=== PATIENT | male | born 1965 | race Caucasian/White ===

== ENCOUNTER 2023-10-19 06:24 | Day surgery (SDC) | payer OTHER, SELFPAY ==
[2023-10-19] VITALS (8 sets, daily range): BP systolic 73–118; BP diastolic 48–87; PULSE 55–72; RESP 16; TEMP 36.2–36.4; O2SAT 91–100; BMI 27.8
[2023-10-19 06:57] LABS: Hematocrit 44.7 % (40-54); Hemoglobin 14.8 g/dL (13.0-16.5); Mean Corp Hgb Conc 33.1 g/dL (32-36); Mean Corpuscular Hgb 30.6 pg (27.0-32.0); Mean Corpuscular Volume 92.4 fL (80-94); Mean Platelet Vol. 9.8 fl (6.2-12.0); Platelet Count 204 K/mm3 (150-450); RBC Distribution Width CV 13.4 % (11.6-14.6); RBC Distribution Width SD 46.2 fl (35.1-43.9); Red Blood Count 4.84 M/mm3 (4.6-6.2); White Blood Count 6.8 K/mm3 (4.4-11.0)
[2023-10-19] MEDS: Lactated Ringers 1,000 ML 15 ML IV (07:05)
[2023-10-19] MEDS: Cefazolin 2 GM in 0.9% Normal Saline (100mL Bag) 100 ML IV (08:23)
[2023-10-19] MEDS: Epinephrine (1 mg/ml) 1 MG/ML VIAL (08:52)
--- NOTE | 2023-10-19 13:37 | PCM.OPRPT ---
Report of Operation Date of Procedure: 10/19/23 Description of Surgical Findings:: Preoperative diagnosis: 1. Right shoulder rotator cuff tear 2. Right shoulder subacromial impingement syndrome 3. Right shoulder biceps tendinosis 4. Right shoulder acromioclavicular joint osteoarthritis Postoperative diagnosis: 1. Right shoulder rotator cuff tear 2. Right shoulder subacromial impingement syndrome 3. Right shoulder long head biceps tendon rupture 4. Right shoulder acromioclavicular joint osteoarthritis Procedure 1. Right shoulder arthroscopic rotator cuff repair 2. Right shoulder arthroscopic subacromial decompression 3. Right shoulder arthroscopic distal clavicle excision 4. Right shoulder arthroscopic debridement of labrum, biceps labral junction, capsular tissue Surgeon: Teto Aparicio DO Combat Control Manager: Mary Ellen Simmons PA-C Anesthesia: General LMA with interscalene block Him Assistant: Jesse Guerra CRNA Estimated blood loss: 5 cc IV fluids: Per anesthesia record Urine output: None recorded Packing/drains: None Implants: Arthrex fiber tack RC x 3, Arthrex 4.75 mm bio composite swivel lock anchor x 3 Preoperative indications: This is an active 58 year-old male seen in the outpatient setting with acute onset right shoulder pain. He had profound weakness in his supraspinatus. MRI demonstrated a full-thickness retracted tear of the supraspinatus and infraspinatus. I recommend surgical intervention in the form of right shoulder arthroscopic rotator cuff repair, subacromial decompression. Patient also had evidence of a chronic SLAP tear and biceps tenodesis was recommended, as well as AC joint arthritis and distal clavicle excision was recommended as well. Informed consent was obtained in the outpatient setting. Risks, benefits, terms the procedure reviewed with the patient at length and he agreed to proceed. Risk included but were not limited to bleeding, infection, loss of life or limb, need for additional surgery, persistent pain, nonhealing tendon or wounds, stiffness, neurovascular injury, DVT or PE. Patient expressed understanding of these risks and wished to proceed with surgery. Description of procedure: Patient was identified in preoperative holding area by name, medical record number, and date of . The operative extremity was marked. All questions were answered to the patient's satisfaction. An interscalene block was administered by anesthesia prior to the procedure. Patient was then brought to the operative suite at time of his procedure. He was positioned supine a sterile operating table. General anesthesia was induced and LMA was placed. Patient was then placed in lateral decubitus position with the right side up. A beanbag was used to hold the patient in the lateral decubitus position. An axillary roll was placed. Pillows were placed beneath and between his legs to free any bony prominences. We prepped and draped the right upper extremity in normal, sterile orthopedic fashion. The operative extremity was placed in traction utilizing arthroscopic bedroom with 15 pounds of tension applied to the operative extremity throughout the arthroscopic portion of the case. We performed a timeout with all parties in attendance in agreement with the side, site, and operation be performed. No concerns were voiced and we elected to proceed with surgery. 2 g Ancef was administered IV prior to incision by anesthesia staff. I first established a standard posterior portal 2 fingerbreadths inferior medial to the posterior lateral border of the scapular spine. Blunt tipped trocar and arthroscopic cannula was introduced into the glenohumeral joint. Joint was inflated with normal saline with epinephrine. Arthroscope was then introduced. Diagnostic arthroscopy was commenced. Full-thickness tearing was noted of the supra and infraspinatus. Anterior interval portal was then established. The biceps tendon was not visualized and appeared to be ruptured. Tendon stump was debrided at the superior labrum. Degenerative labral fraying was debrided at the superior portion of the labrum. Glenohumeral cartilage was pristine. The subscapularis was unremarkable. I debrided the articular side of the rotator cuff with the arthroscopic shaver. I then turned my attention to the subacromial space. Arthroscopic instruments were removed. I reentered the shoulder in the subacromial space with blunt tipped trocar. Standard lateral portal was established with an 11 blade scalpel. Passport was placed for suture management during rotator cuff repair. I then skeletonized the undersurface of the acromion. A prominent downsloping spur from the anterior lateral surface of the acromion was identified. Acromioplasty was performed with the arthroscopic bur removing the spur. I then exposed the supraspinatus footprint with the cautery device. The footprint was lightly decorticated with a bur. Bursal side of the tendon tissue was debrided with a radial resector. I then proceeded with double row fixation. Via percutaneous portal, 3 fiber tack RC anchors were placed for medial row. Sutures were retrieved out the anterior portal. I then sequentially passed each limb of suture from the anchors. A total of 6 suture strands were placed through the supraspinatus tendon tissue near the musculotendinous junction. A single limb of each suture was then retrieved at the lateral portal and passed through the eyelet of a swivel lock anchor, 2 to lock anchors were utilized for a lateral row. Lateral row sales and marketing agent holes were established with the vendor supplied punch. I then completed our lateral row with fixation with tensioning of the sutures and placed in the swivel lock anchor with excellent cortical purchase. Excellent compression and reapproximation of the supraspinatus to his [place] footprint was achieved. Remaining infraspinatus tendon tear was fixed to bone with an inverted mattress #2 FiberWire suture through a swivel lock anchor in standard fashion with excellent reapproximation of tissue to bone. I then turned my attention to the AC joint. The joint capsule was opened along the inferior and anterior aspects. Distal clavicle excision was then performed with the arthroscopic bur removing approximately 8 mm distal clavicle in standard fashion. The superior and posterior portions of the joint capsule were left intact. I then thoroughly lavaged the subacromial space. Arthroscopic instruments were removed. Portal sites were closed in standard fashion with a [id number] 3-0 nylon suture. Given the remote biceps tendon rupture, elected to not perform a biceps tenodesis. Bulky sterile compression dressing was applied. Patient was placed in UltraSling. He tolerated the procedure well without apparent complication. He was safely awoken the operative suite and extubated. He was transferred to his gurney and subsequently to PACU in stable condition. Need for skilled [employer] assistant manager: Mary Ellen Simmons PA-C was critical to the outcome of the case. During the course of the procedure the physician [employer] assistant manager played a vital role. Her intimate knowledge of my steps in the procedure aided in safe and expedient completion of the procedure. The PA played a vital role in positioning particularly in obtaining the appropriate positioning. The PA was also vital in the retraction of soft tissues during the exposure and protecting vital structures. The PA was also vital and obtaining tendon reduction and assisting with hardware placement. She also played a vital role in closure and sling application with my direct supervision. Post Operative Plan: Weightbearing: Nonweightbearing right upper extremity, okay for pendulums. Range of motion of wrist elbow and hand as tolerated. Antibiotics: 2 g Ancef IV prior to incision DVT Prophylaxis: Aspirin enteric-coated 81 mg twice daily starting tomorrow Stephens: None Dressing: Maintain dressing x 2 days then ok to shower X-Rays: 2 weeks postop in the office Pain Medication: Oxycodone Rx upon discharge Follow-up: 2 weeks post-operatively in the office
== END 2023-10-19 11:38 | disposition home or self-care (01) ==
LOC: SDC 06:25 → AC 06:27
PROVIDERS: Anesthesiology; PCP Nurse Practitioner Adult Health; Referring Provider Student in an Organized Health Care Education/Training Program; Visit Provider Student in an Organized Health Care Education/Training Program
PROC: (CPT 29827; principal; 2023-10-19 08:10)
DX: S46.011A Strain of muscle(s) and tendon(s) of the rotator cuff of right shoulder, initial encounter (principal); M19.011 Primary osteoarthritis, right shoulder; S43.431A Superior glenoid labrum lesion of right shoulder, initial encounter; M75.41 Impingement syndrome of right shoulder; Z87.891 Personal history of nicotine dependence; X58.XXXA Exposure to other specified factors, initial encounter
CPT/HCPCS: 64415; 85027; C1713; J2405